=== PATIENT | male | born 1955 | race Hispanic/Latino ===

== ENCOUNTER 2019-05-23 06:55 | Day surgery (SDC) | payer OTHER ==
[2019-05-23] MEDS ORDERED: SODIUM CHLORIDE 0.9% 1000 ML 1,000 ML IV SCH (07:00)
--- NOTE | 2019-05-23 08:07 | Anesthesia Consultation ---
Anesthesia Consult and Med Hx Date of service: 05/23/19 - Airway Anesthetic Teeth Evaluation: Crowns ROM Head & Neck: Adequate Mental/Hyoid Distance: Adequate Mallampati Class: Class II Intubation Access Assessment: Probably Good - Pre-Operative Health Status Proposed Anesthetic Plan: MAC - Pulmonary Hx Smoking: No Hx Asthma: No Hx Respiratory Symptoms: No SOB: No COPD: No Home Oxygen Therapy: No Hx Pneumonia: No Hx Sleep Apnea: Yes - Cardiovascular System Hx Hypertension: Yes Hx Coronary Artery Disease: No Hx Heart Attack/AMI: No Hx Angina: No Hx Percutaneous Transluminal Coronary Angioplasty (PTCA): No Hx Cardia Arrhythmia: No Hx Pacemaker: No Hx Internal Defibrillator: No Hx Valvular Heart Disease: No Hx Heart Murmur: Yes Hx Peripheral Vascular Disease: No - Central Nervous System Hx Neuromuscular Disorder: No Hx Seizures: No CVA: No Hx Back Pain: Yes Hx Psychiatric Problems: No - Gastrointestinal Hx Ulcer: No Hx Gastroesophageal Reflux Disease: Yes - Endocrine Hx Renal Disease: No Hx End Stage Renal Disease: No Hx Cirrhosis: No Hx Liver Disease: No Hx Insulin Dependent Diabetes: No Hx Non-Insulin Dependent Diabetes: No Hx Thyroid Disease: No Hx Hypothyroidism: No Hx Hyperthyroidism: No - Hematic Hx Anemia: No Hx Sickle Cell Disease: No - Other Systems Hx Alcohol Use: No Hx Substance Use: No Hx Cancer: No Hx Obesity: No
--- NOTE | 2019-05-23 08:19 | Anesthesia Day of Surgery ---
Anesthesia Day of Surgery - Day of Surgery Patient Examined: Yes Patient H&P Reviewed: Yes Patient is NPO: Yes
[2019-05-23] MEDS ORDERED: LIDOCAINE MPF (2%) 20 MG/1 ML VIAL 5 ML ONE (09:00)
[2019-05-23] MEDS ORDERED: PROPOFOL 200 MG/20 ML VIAL IV ONE ×3 (09:41→10:00)
--- NOTE | 2019-05-23 10:17 | Procedure Note ---
Date of procedure: 05/23/19 Pre-op diagnosis: GERD/ Colon Polyp Screening Post-op diagnosis: other (Mild to Moderate Erosive Esophagitis/Gastritis/R/O Eosinophilic Esophagitis/No Colon Polyps noted/ Moderate,Left Colon Diverticular Disease/Minor,Internal Hemorrhoid) Procedure: EGD with Biopsy/ Colonoscopy Anesthesia: [facility] [place] Surgeon: ALBARO SALCIOD Estimated blood loss: minimal Pathology: list Specimen disposition: to lab Condition: stable Disposition: same day (Treat with PPI,encourage OTC Probiotic and encourage fiber supplements. Avoid aspirin and NSAID for 4 days; otherwise resume home medication. Follow up in 1 to 2 weeks ([phone]).)
--- NOTE | 2019-05-23 10:21 | Operative Report ---
PROCEDURE: EGD with biopsy. INDICATIONS: This is a 63-year-old white male who has been having some GERD symptoms. EGD was done to assess for the problem DESCRIPTION OF PROCEDURE: The procedure was done after getting informed consent with MAC anesthesia. Instrument was passed through the hypopharynx into the esophagus, which showed mild to moderate distal erosive esophagitis. Biopsy was done from the distal esophagus to assess the severity of the esophagitis and also from the mid esophagus to assess for possible associated eosinophilic esophagitis. Stomach showed antral gastritis. Biopsy was done from the gastric antrum, gastric body, and angular incisura to rule out for H. pylori and atrophic gastritis. The pylorus is patent. The duodenum in the first and second portion appeared normal. There were no ulcers were noted within the gastric or the duodenal lumen. There was minimal bleeding from the biopsy sites and no complications associated with the procedure. Procedure was done in the GI lab with assistance of the GI lab team, which included Allyson KRAUSE as well as Orquidea torres and with the assistance of anesthesia. ASSESSMENT: Gastroesophageal reflux disease symptoms, mild to moderate distal erosive esophagitis, rule out eosinophilic esophagitis, gastritis. PLAN: Plan is to treat the patient with PPI, have the patient avoid aspirin and aspirin-related products for the next few days. The patient will also be encouraged to take [id number] probiotics and a colonoscopy will be done for further assessment. There was minimal bleeding associated with the procedure. No complications associated with the procedure. The patient will be asked to follow up in the office in 1-2 weeks' time. [facility]# [id number] GONZALO/WING
--- NOTE | 2019-05-23 10:46 | Operative Report ---
PROCEDURE: Colonoscopy. INDICATIONS: A 63-year-old white male who had a colonoscopy done as part of colon polyp screening. EGD was done prior to the colonoscopy because the patient had some problems with GERD symptoms. He was noted to have EGD, which showed presence of [id number] distal erosive esophagitis and gastritis. Biopsy was also done to rule out for eosinophilic esophagitis. DESCRIPTION OF PROCEDURE: Initial rectal exam prior to the colonoscopy was unremarkable. Instrument was passed through the rectum onto the cecum, which was identified with ileocecal valve and appendiceal orifice. The terminal ileum was briefly intubated showed normal mucosa cecum, ascending colon, transverse colon showed normal mucosa. There was moderately deep diverticular disease noted in the left colon and the rectum showed some minor internal hemorrhoid on the retroverted view. There were no biopsies done during the colonoscopy and no bleeding associated with the colonoscopy. ASSESSMENT: Colon polyp screening, no colon polyps noted. Moderate left colon diverticular disease, minor internal hemorrhoid, normal ileal mucosa. The procedure was done in the GI lab with assistance of anesthesia and with assistance of the GI lab team, which included RN, Allyson Josue and with assistance of the Orquidea torres. The patient will be treated with PPI because of the EGD findings of esophagitis, gastritis and asked to avoid aspirin and aspirin-related products for the next few days and follow up in the office in 1-2 weeks' time. JOB# [id number] GONZALO/WING
[2019-05-23 11:04] VITALS: BP 138/72
--- NOTE | 2019-05-23 18:01 | Post Anesthesia Evaluation ---
- Post Anesthesia Evaluation Patient Participated: Yes Airway Patent: Yes Stable Respiratory Function: Yes Nausea/Vomiting: No Temp > 96.8F: Yes Pain Manageable: Yes Adequeate Hydration: Yes Anesthesia Complications: No Block Receding Appropriately: Not Applicable Patient on Ventilator: No
== END 2019-05-23 06:56 | disposition home or self-care (01) ==
LOC: GIO 06:55
DX: R19.7 Diarrhea, unspecified (principal); K57.30 Diverticulosis of large intestine without perforation or abscess without bleeding; K64.8 Other hemorrhoids; K21.0 Gastro-esophageal reflux disease with esophagitis; K29.50 Unspecified chronic gastritis without bleeding; E78.00 Pure hypercholesterolemia, unspecified; I10 Essential (primary) hypertension; G47.30 Sleep apnea, unspecified; Z88.5 Allergy status to narcotic agent; Z88.0 Allergy status to penicillin; Z79.899 Other long term (current) drug therapy
CPT/HCPCS: 43239; 45378; 88305; 88342; J2704; J7030